=== PATIENT | male | born 1960 | race Caucasian/White ===

== ENCOUNTER 2018-02-06 00:52 | Emergency (ER) | payer MEDICAID, OTHER ==
[~2018-02-06] VITALS: Ht 177.8 cm; Wt 106.6 kg
[2018-02-06 02:09] LABS: Basophils # (auto) 0 uL; Basophils % (auto) 0.2 % (0.0-2.0); Eosinophils # (auto) 0.1 uL; Eosinophils % (auto) 0.9 % (0.0-7.0); Hemoglobin 12.3 g/dL (13.5-17.5); Lymphocytes % (auto) 9.8 % (10.0-50.0); Mean Corpuscular Hemoglobin 28.7 pg (28.0-32.0); Mean Corpuscular Hgb Conc. 34.2 g/dL (32.0-36.0); Mean Corpuscular Volume 83.9 fL (80.0-100.0); Monocytes # (auto) 0.8 uL; Monocytes % (auto) 7.8 % (0.0-12.0); Neutrophils # (auto) 8.5 uL; Neutrophils % (auto) 81.3 % (37.0-80.0); Platelet Count (auto) 237 10^3/uL (140-450); Red Blood Cells 4.29 10^6/uL (4.5-5.90); Red Cell Distribution Width 13.6 % (11.8-14.3); White Blood Cell 10.4 10^3/uL (4.4-10.8)
[2018-02-06 02:24] LABS: INR 0.99 (0.9-1.15); Prothrombin Time 10.6 sec (9.27-12.13)
[2018-02-06 02:27] LABS: Anion Gap 9 (5-15); Blood Urea Nitrogen 30 mg/dL (7-18); Calcium 7.8 mg/dL (8.5-10.1); Carbon Dioxide 29 mmol/L (21-32); Chloride 100 mmol/L (98-107); Glucose 196 mg/dL (74-106); Magnesium 2.2 mg/dL (1.6-2.6); Potassium 3.2 mmol/L (3.5-5.1); Sodium 138 mmol/L (136-145)
[2018-02-06 02:29] LABS: Alanine Aminotransferase 23 U/L (16-61); Aspartate Aminotransferase 13 U/L (15-37); BUN/Creatinine Ratio 13.5; GFR African American 39 mL/min; GFR Non-African American 32 mL/min
[2018-02-06 02:34] LABS: Alkaline Phosphatase 80 U/L (45-117); Bilirubin, Total 0.7 mg/dL (0.2-1.0); Total Protein 5.9 g/dL (6.4-8.2)
[2018-02-06] MEDS ORDERED: HETASTARCH 500 ML IV ONE ×2 (03:00→03:01)
[2018-02-06] MEDS ORDERED: SODIUM CHLORIDE 0.9% 2,000 ML IV ONE (03:45)
[2018-02-06] MEDS ORDERED: POTASSIUM CHL 20 Meq TABLET PO ONE (06:00)
[2018-02-06] MEDS ORDERED: SODIUM CHLORIDE 0.9% 1,000 ML IV ONE (07:30)
[2018-02-06 15:16] LABS: Urine Bacteria NONE SEEN /hpf (None Seen); Urine Blood Negative /uL (Negative); Urine Hyaline Cast MANY /lpf (0 - 2); Urine Specific Gravity 1.022 (1.001-1.035); Urine WBC 1 /hpf (0 - 3)
[2018-02-06 15:39] VITALS: BP 98/59
[2018-02-06] MEDS ORDERED: GLIP-115 PO (16:24)
[2018-02-06] MEDS ORDERED: GABA-339 PO (16:24)
[2018-02-06] MEDS ORDERED: METF-371 PO (16:24)
[2018-02-06] MEDS ORDERED: ESCI10TA PO (16:26)
[2018-02-06] MEDS ORDERED: ASPI81CH43 PO (16:26)
[2018-02-06] MEDS ORDERED: HCTZ25T PO (16:26)
[2018-02-06] MEDS ORDERED: MORP-109 PO (16:26)
[2018-02-06] MEDS ORDERED: LISI40TA PO (16:26)
[2018-02-06] MEDS ORDERED: GABAPENTIN 400 MG CAP PO ONE (16:45)
[2018-02-06] MEDS ORDERED: GABAPENTIN 100 MG CAP ONE (17:00)
== END 2018-02-06 16:59 | disposition home or self-care (01) ==
LOC: ER 00:52
DX: R55 Syncope and collapse (principal); E87.6 Hypokalemia; N17.9 Acute kidney failure, unspecified; E11.65 Type 2 diabetes mellitus with hyperglycemia; E78.5 Hyperlipidemia, unspecified; I10 Essential (primary) hypertension
CPT/HCPCS: 36415; 70450; 71250; 74176; 80053; 81001; 83735; 84484; 85025; 85610; 85730; 93005; 96361; 96365; 99285; J7030